=== PATIENT | male | born 1985 | race Caucasian/White ===

== ENCOUNTER 2023-03-25 17:10 | Emergency (ER) | payer OTHER, SELFPAY ==
[2023-03-25 17:15] VITALS: BP 142/84; PULSE 77; RESP 16; TEMP 36.6; O2SAT 98
--- NOTE | 2023-03-25 18:28 | ED.WOUNDLAC ---
HPI - Wound/Laceration General Chief Complaint: Wound/Laceration Stated Complaint: head lac Time Seen by Provider: 03/25/23 17:14 Source: patient Mode of arrival: ambulatory Limitations: no limitations History of Present Illness HPI narrative: This is a 37 year old male that presents to the ER for laceration to the scalp. Just prior to arrival patient was trying to bring in his large trash can. He accidentally dropped the trash can and fell forward into it. Hit his head on the trash can. He is up to date on tetanus. Denies headache, visual changes, vomiting, numbness, weakness, or loss of consciousness. Review of Systems Review of Systems: CONSTITUTIONAL: Denies fever SKIN: Reports laceration NEUROLOGIC: Denies headache, numbness, or weakness. All systems reviewed & are unremarkable except as noted in HPI and below PMFSH Past Medical History Medical History (Updated 03/25/23 @ 18:35 by Kenisha Pyle PA-C) No active medical problems Social History Social History (Updated 03/25/23 @ 18:31 by Kenisha Pyle PA-C) Substance use: never Exam Narrative: GENERAL: Well-appearing, well-nourished, and in no acute distress. HEAD: Normocephalic. 2cm linear laceration into subcutaneous tissue over the left side of the scalp at the hairline EYES: PERRLA and EOMI. ENT: Nares clear, no rhinorrhea or epistaxis. Mucous membranes moist. Oropharynx without tonsillar hypertrophy exudate or other lesions. Bilateral TMs pearly [place] non-bulging NECK: Supple. No adenopathy or masses. CHEST: Clear to auscultation. No respiratory distress. No wheezes rales or rhonchi HEART: Regular rate and rhythm. No murmur heard. Normal peripheral pulses. EXTREMITIES: Normal range of motion. No edema. SKIN: Warm, dry, no rash. NEURO: No focal deficits. Alert and oriented x3. Cranial nerves II through XII grossly intact. Normal gait PSYCH: Normal mood and affect Course Course Emergency Course: Patient educated on wound care Vital Signs Vital signs: Vital Signs Temperature 97.9 F 03/25/23 17:15 Pulse Rate 77 03/25/23 17:15 Blood Pressure 142/84 H 03/25/23 17:15 Pulse Oximetry 98 03/25/23 17:15 Temperature 97.9 F 03/25/23 17:15 Pulse Rate 77 03/25/23 17:15 Blood Pressure 142/84 H 03/25/23 17:15 Pulse Oximetry 98 03/25/23 17:15 Procedures Laceration Laceration 1: Date: 03/25/23 Time: 18:32 Site: scalp Size (cm): 2 Description: linear Depth: simple, single layer Local Anesthetic: lidocaine 2% and with epi Amount of anesthesia used (mL): 3 Pre-repair: wound explored and irrigated ====== Skin Level ====== Skin layer closed with: prolene Size (cm): 4-0 Number of sutures: 3 Technique: simple, interrupted ====== Subcutaneous Layer ====== ====== Muscle Layer ====== ====== Tendon Layer ====== MDM - Wound/Laceration MDM Narrative Medical decision making narrative: Patient presents to the emergency department for a laceration to his scalp sustained just prior to arrival. Patient is neurologically intact. Denies any visual changes, vomiting, focal numbness or weakness. He is not on any anticoagulation. His laceration was irrigated and closed with sutures. He was educated on wound care. He is up-to-date on tetanus. He is to follow-up with primary provider. He was given warnings to return to the ER Differential Diagnosis Differential diagnosis: Likely laceration and abrasion Critical Care Time Critical Care Time Critical Care Time: No Discharge Plan Discharge Clinical Impression: Laceration Patient Disposition: Home, Self-Care Condition: Stable Instructions: Care For Your Stitches (ED), Laceration (ED) Additional Instructions: Return to the emergency department if you experience fever, redness or swelling of your wound, abnormal drainage from your wound, or any other symptoms t
[2023-03-25] MEDS: LIDO 2%/EPINEPHRINE 1:100,000 20 ML VIAL (18:41)
[2023-03-25 18:44] VITALS: PULSE 76; RESP 16; O2SAT 99
== END 2023-03-25 18:45 | disposition home or self-care (01) ==
PROVIDERS: Emergency Provider Physician Assistant
DX: S01.01XA Laceration without foreign body of scalp, initial encounter (principal); W01.198A Fall on same level from slipping, tripping and stumbling with subsequent striking against other object, initial encounter
CPT/HCPCS: 12001; 99282

== ENCOUNTER 2024-07-14 15:11 | Emergency (ER) | payer OTHER, SELFPAY ==
--- NOTE | ~2024-07-14 | CT_ITS ---
EXAMINATION: CT diagnostic chest wo con DATE: 07/14/2024 17:02 INDICATION: left posterior rib pain, fall TECHNIQUE: Computed tomography (CT) of the chest was performed with 100 mL Omnipaque-350 intravenous contrast. Automated exposure control and iterative reconstruction technique were employed. The dose-l ength product was 544.33 mGy-cm. COMPARISON: None. FINDINGS: CHEST: Thoracic aorta: No significant dilation or calcification. Lung parenchyma and airways: Lungs and airways are clear. Right lower lobe atelectasis/scar. Thoracic inlet, axillae and chest wall: No thyroid or soft tissue mass. Mild symmetric gynecomastia. No axillary lymphadenopathy. Mediastinum: No mass or lymphadenopathy. Heart and pericardium: Normal heart size. No pericardial effusion. Coronary artery calcifications: Absent. Pleura: No effusion or mass. Upper abdomen: Cholelithiasis, without inflammatory change. Thoracic bones: Longitudinally oriented nondisplaced fracture of the left posterior ninth rib. Nondis placed left posterior 10th and 12th rib fractures. Minimally displaced segmental left posterior 11th rib fracture. Nondisplaced fracture of the left L1 transverse process. IMPRESSION: Nondisplaced and minimally displaced left posterior rib fractures of ribs 9-12. Nondisplaced fracture of the left L1 transverse process. No other acute thoracic process detected. Reviewed, dictated and finalized at location [facility] [employer]
[2024-07-14 15:14] VITALS: BP 157/91; PULSE 88; RESP 18; TEMP 36.2; O2SAT 97
[2024-07-14] MEDS: LIDOCAINE 5% PATCH 1 PATCH TRANSDERM (16:31)
[2024-07-14] MEDS: CYCLOBENZAPRINE HCL 10 MG TABLET PO (16:31)
[2024-07-14] MEDS: KETOROLAC 30 MG/ML VIAL (*BKC) IM (16:31)
[2024-07-14 16:36] VITALS: BP 146/91; PULSE 74; RESP 17; O2SAT 98
--- NOTE | 2024-07-14 16:45 | ED.BACK ---
HPI - Back Pain/Injury General Chief Complaint: Back Pain/Injury Stated Complaint: back pain Time Seen by Provider: 07/14/24 15:59 History of Present Illness HPI Narrative: 38-year-old male presents emergency department for left-sided back pain after mechanical fall that occurred today. Patient states he tripped on a root in the ground and fell on his back. He did not his head or lose consciousness. He is reporting pain to his left mid back. States pain is worse with taking a deep breath and with certain positions. He took Celebrex and methocarbamol at 11:00 a.m. today Without improvement. HX of NANNETTE. Does not smoke. Related Data Allergies Allergy/AdvReac Type Severity Reaction Status Date / Time No Known Allergies Allergy Verified 07/14/24 15:17 Review of Systems Review of Systems: All systems reviewed & are unremarkable except as noted in HPI and below PMFSH Past Medical History Medical History No active medical problems Social History Social History Substance use: never Exam Narrative: GENERAL: Well-appearing, well-nourished, and in no acute distress. HEAD: Normocephalic, atraumatic. EYES: EOMI. ENT: Nares clear, no rhinorrhea or epistaxis. Mucous membranes moist. NECK: no midline cervical spinous tenderness, step-offs or deformities BACK: no midline thoracolumbar spinous tenderness, step-offs or deformities. Tenderness to the left posterior ribs T9 through T11 with no overlying skin changes or crepitus CHEST: Clear to auscultation. No respiratory distress. HEART: Regular rate and rhythm. No murmur heard. Normal peripheral pulses. EXTREMITIES: Normal range of motion. No edema. strength 5/5 in BLE. No saddle anesthesia. Sensation intact throughout SKIN: Warm, dry, no rash. NEURO: No focal deficits. Alert and oriented x3 Course Vital Signs Vital signs: Vital Signs Temperature 97.2 F L 07/14/24 15:14 Pulse Rate 88 07/14/24 15:14 Respiratory Rate 18 07/14/24 15:14 Blood Pressure 157/91 H 07/14/24 15:14 Pulse Oximetry 97 07/14/24 15:14 Oxygen Delivery Room Air 07/14/24 15:14 Temperature 97.2 F L 07/14/24 15:14 Pulse Rate 67 07/14/24 18:13 Respiratory Rate 14 07/14/24 18:13 Blood Pressure 146/91 H 07/14/24 16:36 Pulse Oximetry 97 07/14/24 18:13 Oxygen Delivery Room Air 07/14/24 15:14 MDM - Back Pain/Injury MDM Narrative Medical decision making narrative: 38-year-old male with a hx of NANNETTE presents to emergency department for left midback pain after mechanical injury that occurred earlier today. Vitals with elevated blood pressure, otherwise unremarkable. Exam is significant for the above. He is neurovascularly intact. No midline spinous tenderness. CT of the chest shows a nondisplaced minimally displaced left posterior rib fractures of ribs 9 through 12. There is a nondisplaced fracture of the left L1 transverse process. No pneumothorax or hemothorax, no other acute thoracic process detected. Patient and at bedside updated workup. He received IM Toradol, Flexeril, lidocaine patch and [place] without improvement. Shared decision making regarding transfer to a trauma facility given intractable pain and multiple rib fractures. He and his agree with this. Requesting [facility]. Discussed with [facility] physician, Dr. Blanchard, who agrees to transfer. Pt requesting to transfer with via POV. he left department in stable condition after receiving IM Dilaudid. Discharge Plan Discharge Clinical Impression: Multiple fractures of ribs Qualifiers: Encounter type: initial encounter Fracture type: closed Laterality: left Qualified Code(s): S22.42XA - Multiple fractures of ribs, left side, initial encounter for closed fracture Closed L1 vertebral fracture Qualifiers: Encounter type: initial encounter Fracture morphology: unspecified fracture morphology Qualified Code(s): S32.019A - Unspecified fracture of first lumbar vertebra, initial encounter for closed fracture Patient Disposition: Acute Care Hospital Condition: Stable Follow-up/Referrals: [facility], [Primary Care Provider] -
[2024-07-14] MEDS: HYDROcodone/acetaminophen (*CRX) 5-325 MG TABLET 1 TAB PO (17:40)
[2024-07-14] MEDS: HYDROmorphone HCL INJ (*CRX) 1 MG/ML SYR IM (18:11)
[2024-07-14 18:13] VITALS: BP 151/93; PULSE 67; RESP 14; O2SAT 97
--- NOTE | 2024-07-14 18:56 | PC.NURSE ---
Report called to AVERY Montes at [facility]. Pt. offered transportation but declined. Pt. to be transferred via private vehicle.
[2024-07-14 19:12] VITALS: BP 145/62; PULSE 70; RESP 16; O2SAT 98
== END 2024-07-14 19:14 | disposition short-term general hospital (02) ==
PROVIDERS: Emergency Provider Physician Assistant
DX: S22.42XA Multiple fractures of ribs, left side, initial encounter for closed fracture (principal); S32.019A Unspecified fracture of first lumbar vertebra, initial encounter for closed fracture; W18.30XA Fall on same level, unspecified, initial encounter
CPT/HCPCS: 71250; 96372; 99284; 99285; A9270; J1171; J1885